=== PATIENT | male | born 1935 | race Caucasian/White ===

== ENCOUNTER 2023-10-03 09:29 | Emergency (ER) | payer OTHER, SELFPAY ==
[2023-10-03 09:37] VITALS: BP 155/72; PULSE 75; RESP 18; TEMP 36.6; O2SAT 96; BMI 31.9
--- NOTE | 2023-10-03 10:04 | ED.WOUNDLAC ---
HPI - Wound/Laceration General Chief Complaint: Wound/Laceration Stated Complaint: wound in groin area Time Seen by Provider: 10/03/23 09:51 Source: patient Mode of arrival: ambulatory Limitations: no limitations History of Present Illness ED Provider: EPIFANIO HYDE PA-C HPI narrative: 88 year old male with pmhx significant for T2DM presents to the ED today for evaluation of groin pruritis x1 year. States that he's been lathering the area with cream prescribed by his PCP with minimal relief. Admits to wearing depends and does not change them as often as he should. Additionally, states he only occasionally washes the area with soap and water. Denies fevers, chills, discharge from the penis, testicular swelling/ redness/ pain, dysuria, hematuria, rashes. Related Data Previous Rx's ?Medication ?Instructions ?Recorded miconazole nitrate 2 % topical 1 appl topical DAILY #85 grams 10/03/23 powder (Antifungal (miconazole)) Allergies Allergy/AdvReac Type Severity Reaction Status Date / Time morphine AdvReac Agitated Verified 10/03/23 09:38 Review of Systems Review of Systems: Constitutional: No fever, chills, fatigue, night sweats, weight changes ENT/Mouth: No ear pain, hearing loss, nasal congestion, sinus pain, rhinorrhea, sore throat Eyes: No eye pain, swelling, redness, vision changes, discharge Cardio: No chest pain, palpitations, SHAFFER, orthopnea, peripheral edema Pulm: No SOB, cough, sputum, wheezing, dyspnea, hemoptysis GI: No nausea, vomiting, hematemesis, abdominal pain, diarrhea, constipation, hematochezia, melena : No irregular bleeding, dysuria, frequency, urgency, hesitancy, hematuria, flank pain, urinary flow changes, urinary incontinence or retention MSK: No back pain, neck pain, joint pain, myalgias Skin: No lesions, +pruritic groin rash Neuro: No weakness, numbness, paresthesias, LOC, dizziness, headache Psych: No anxiety/panic, depression, SI/HI, AH/VH All other systems reviewed and are negative. [facility] Past Medical History Attestation statement: The following information was validated with the patient. Source: old records reviewed and nursing notes reviewed Social History Social History Advance Directives: Yes Advance Directives Information Provided: Yes Advance Directives on File: No Do you have a plan to hurt others: No Plan Physical Exam Vital Signs: Vital Signs: Last Vital Signs Temp 97.3 F 10/03/23 12:01 Pulse 68 10/03/23 12:01 Resp 15 10/03/23 12:01 BP 159/77 H 10/03/23 12:01 Pulse Ox 97 10/03/23 12:01 O2 Del Method Room Air 10/03/23 12:01 BMI result Body Mass Index 31.9 patient hypertensive, vitals otherwise wnl. Const: General: cooperative, comfortable and no acute distress Orientation/consciousness: patient oriented x3 Limitations: no limitations HEENT: Head: Yes normal to inspection, Yes No palpable skull fracture present, Yes normocephalic and Yes atraumatic Eyes: General: appearance normal, both eyes and all related structures Resp: Effort & Inspection: normal respiratory effort and able to speak in complete sentences Auscultation: clear to auscultation bilaterally Cardio: Rate: regular rate Rhythm: regular rhythm GI: Inspection: Yes normal to inspection Palpation (GI): Soft to palpation, nontender and no guarding : Other: sensitive exam performed with Christian RN in room to senior php web developer. penis wnl. no urethral discharge. testicles with normal lie. small peteciae noted to skin of both testicles with areas of excoriation. no erythema/ warmth/ swelling/ deformity/ no active bleeding or discharge. no tenderness. normal perineum. General: Yes no CVA tenderness Back/Spine/Pelvis: Back: no CVA tenderness Skin: Other: see above Neuro: General: patient oriented x3 and gait normal Course Course Course Narrative: 1135-- Patient's physical exam findings are consistent with yeast infection. there is no erythema/ warmth to suggest cellulitis. no swelling or overlying skin changes noted to perineum to suggest fourniers gangrene. no testicular swelling/ discharge. Discussed with patient. Will send miconazole powder to pharmacy for treatment. educated patient on keep the area clean and dry. advised to follow up with PCP and will provide referral to urology. Patient has remained stable throughout ED visit today. Discussed worrisome signs and symptoms and when to return to the ED. All questions answered at this time. Patient is agreeable with disposition and stable for discharge. Medical Decision Making Medical Decision Making [facility] Narrative: 88 year old male with pmhx significant for T2DM presents to the ED today for evaluation of groin pruritis x1 year. patient is hypertensive, vitals otherwise wnl. he is nontoxic appearing and in nad. on exam, penis wnl. no urethral discharge. testicles with normal lie. small peteciae noted to skin of both testicles with areas of excoriation. no erythema/ warmth/ swelling/ deformity/ no active bleeding or discharge. no tenderness. normal perineum. Differential diagnosis include fungal/ yeast infection. Unlikely cellulitis, fourniers gangrene. Plan for disposition. Differential Diagnosis Differential Diagnoses: The differential diagnosis associated with the presentation includes as above. Admission/Observation Not indicated. Tests considered The following testing was considered but not selected: I considered obtaining basic labs however no concern for systemic infection, not warranted. Prescription Management I considered prescription management with: Other (antifungal) Chronic Conditions Patient?s care impacted by: Diabetes Discharge Plan Discharge Clinical Impression: Fungal infection Patient Disposition: Home, Self-Care Instructions: Skin Yeast Infection (ED) Additional Instructions: You have a fungal infection. Miconzaole is an antifungal powder that has been sent to your pharmacy. You may apply this up to twice daily. Make sure you are changing your depends often. Wash your genital area well after removal and keep the area dry. You have also been provided with referral to urology. Call them to establish care. They will not call you. Return with new or worsening symptoms. In the case of an emergency call 911. Prescriptions: New miconazole nitrate [Antifungal (miconazole)] 2 % powder 1 appl topical DAILY Qty: 85 0RF Referrals: [facility] [place] [facility] [Provider Group] Interventions: ED Discharge Assessment Last Done: 10/03/23 12:01 Discharge Date/Time: 10/03/23 12:05 Print Language: [place]
[2023-10-03 11:35] VITALS: BP 159/77; PULSE 68; RESP 15; TEMP 36.3; O2SAT 97
[2023-10-03 12:01] VITALS: BP 159/77; PULSE 68; RESP 15; TEMP 36.3; O2SAT 97
== END 2023-10-03 12:05 | disposition home or self-care (01) ==
PROVIDERS: Emergency Provider Student in an Organized Health Care Education/Training Program
DX: B35.6 Tinea cruris (principal); L29.9 Pruritus, unspecified
CPT/HCPCS: 99283

== ENCOUNTER 2023-11-27 15:57 | Emergency (ER) | payer MEDICARE, SELFPAY ==
[2023-11-27 16:39] VITALS: BP 143/92; PULSE 84; RESP 16; TEMP 36.4; O2SAT 94; BMI 36.4
--- NOTE | 2023-11-27 16:42 | ED_ITS ---
HPI - General Adult General Chief complaint: Urogenital-Male Stated complaint: unable to urinate Time Seen by Provider: 11/27/23 22:00 Source: patient Mode of arrival: ambulatory Limitations: no limitations History of Present Illness ED Provider: carol PALENCIA narrative: Patient's history of diabetes hypertension peripheral vascular disease diverticulitis status post colostomy comes here for 5 days of dysuria and frequency no fever no chills no nausea no vomiting no back pain patient never been on any prostate medication history of UTI last year with similar symptoms. Bladder scan postvoid was 0 Related Data Previous Rx's ?Medication ?Instructions ?Recorded miconazole nitrate 2 % topical 1 appl topical DAILY #85 grams 10/03/23 powder (Antifungal (miconazole)) cefuroxime axetil 250 mg tablet 250 mg PO BID 7 days #14 tabs 11/27/23 Allergies Allergy/AdvReac Type Severity Reaction Status Date / Time morphine AdvReac Agitated Verified 11/27/23 16:40 Review of Systems 2 Review of Systems: Yes all other systems are reviewed and are negative [facility] Past Medical History Medical History (Updated 11/28/23 @ 00:01 by Destiny Pryor) Colostomy in place Diverticulitis Peripheral vascular disease Hypertension Diabetes mellitus Social History Social History Advance Directives: No Advance Directives Information Provided: No Do you have a plan to hurt others: No Plan Physical Exam ED Vital Signs: Vital Signs - 24 hr 11/27/23 16:39 11/27/23 22:35 11/27/23 22:43 Temperature 97.6 F 97.8 F 97.8 F Pulse Rate 84 74 74 Respiratory Rate 16 16 16 Blood Pressure 143/92 H 111/56 L 111/56 L Pulse Oximetry 94 96 96 Oxygen Delivery Method Room Air Room Air Room Air BMI result Body Mass Index 36.4 Appearance: Alert. Oriented X3. No acute distress. Eyes: No pallor or icterus ENT: Pharynx normal. Oral Mucosa moist Neck: Normal inspection. Neck supple. CVS: Normal heart rate and rhythm. Pulses normal. Respiratory: No respiratory distress. Equal air entry bilateral, no wheezing/rales/rhonchi Abdomen: Soft and nontender. Bowel sounds are present, no mass palpable, no CVA tenderness Skin: Skin warm and dry. Normal skin color. Normal skin turgor. Extremities: No lower extremity edema. No calf tenderness Neuro: Oriented X 3. No motor deficit. No sensory deficit.No cerebellar signs , cranial nerves II-XII intact Course Course Course Narrative: This is an RME: Additional HPI, ROS, PE not included below will be deferred to primary provider. RME assessment and note performed by: Mary Lou Santillan PA-C This is a 88 year old male, with a history of type 2 diabetes, who presents to the ER with complaints of urinary retention with dysuria. Unable to fully empty bladder. No abdominal discomfort. He is well-appearing. Plan: Labs, UA, further ER evaluation needed. Medications Administered Discontinued Medications Generic Name Dose Route Start Last Admin Trade Name Freq PRN Reason Stop Dose Admin Cefuroxime Axetil 500 mg 11/27/23 22:17 11/27/23 22:34 Cefuroxime Axetil 500 Mg Tablet PO 11/27/23 22:18 500 mg ONCE ONE Administration Medical Decision Making Medical Decision Making [facility] Narrative: Patient with UTI symptoms with history of diabetes and hypertension no history of acute urinary retention no history of any use of medication for enlarged prostate been followed by urologist. Will start patient on cefuroxime for UTI Differential Diagnosis Differential Diagnoses: The differential diagnosis associated with the presentation includes Lab Data MDM Lab Attestation statement: I reviewed the patient's lab results. 11/27/23 17:24 11/27/23 17:24 Labs: Lab Results 11/27/23 Range/Units 17:24 WBC 8.6 (4.8-10.8) X10*3/uL RBC 3.96 L (4.60-5.80) X10*6/uL Hgb 12.7 L (14.0-18.0) g/dl Hct 36.9 L (42.0-52.0) % MCV 93.2 (80.0-98.0) fL MCH 32.1 (27.0-33.0) pg MCHC 34.4 (31.0-36.0) g/dl RDW 12.6 (11.0-16.0) % Plt Count 132 L (160-400) X10*3/uL MPV 10.4 (9.4-12.4) fL Immature Gran % (Auto) 0.7 H (0.0-0.4) % Neut % (Auto) 71.0 (45-73) % Lymph % (Auto) 14.7 L (20-40) % [place] % (Auto) 11.4 H (2-11) % Eos % (Auto) 1.7 (0-4) % Baso % (Auto) 0.5 (0-2) % Lymph # (Auto) 1.3 (1.2-4.9) X10*3/uL [place] # (Auto) 1.0 (0.1-1.2) X10*3/uL Eos # (Auto) 0.2 (0.0-0.4) X10*3/uL Baso # (Auto) 0.0 (0.0-0.2) X10*3/uL Abs Immat Gran (auto) 0.06 H (0.00-0.03) X10*3/uL Absolute Neuts (auto) 6.1 (2.0-8.3) x10*3/uL Absolute Nucleated RBC 0.000 (0.0-0.012) X10*3/uL Nucleated RBC % (auto) 0.0 (0.0-0.2) /100WBC Sodium 136 (135-145) mmol/L Potassium 4.4 (3.3-5.1) mmol/L Chloride 104 (96-108) mmol/L Carbon Dioxide 23 (22-29) mmol/L Anion Gap 13 (12-20) BUN 33 H (9-16) mg/dL Creatinine 1.34 (0.5-1.4) mg/dL Estim Creat Clear Calc 31.5 Estimated GFR 51 Random Glucose 265 H (60-115) mg/dL Calcium 9.6 (8.4-10.2) mg/dL Total Bilirubin 0.5 (0.0-1.0) mg/dL Direct Bilirubin 0.2 (0.0-0.5) mg/dL AST 16 (5-37) U/L ALT 16 (0-40) U/L Alkaline Phosphatase 107 (39-117) U/L Total Protein 7.1 (6.5-8.0) g/dL Albumin 3.8 (3.5-5.0) g/dL Urine Color Yellow Urine Appearance Cloudy Urine pH 5.5 (5.0-9.0) Ur Specific Asher 1.010 (1.005-1.025) Urine Protein 30 (1+) H (Neg-Trace) mg/dL Urine Glucose (UA) 500 H (Negative) mg/dL Urine Ketones Negative (Negative) mg/dL Urine Blood Moderate (2+) H (Negative) Urine Nitrite Negative (Negative) Ur Leukocyte Esterase Large (3+) H (Negative) Urine RBC 0-2 (0-2) /HPF Urine WBC >50 H (0-5) /HPF Ur Squamous Epith Cells 0-2 (0-2) /HPF Urine Bacteria 3+ (None Seen) Hyaline Casts 0-2 (0-2) /LPF Discharge Plan Discharge Clinical Impression: Urinary tract infection Patient Disposition: Home, Self-Care Instructions: Urinary Tract Infection in Men (DC) Additional Instructions: Drink plenty of fluids Take antibiotic as prescribed Follow with your PCP if not better Prescriptions: New cefuroxime axetil 250 mg tablet 250 mg PO BID 7 Days Qty: 14 0RF No Action miconazole nitrate [Antifungal (miconazole)] 2 % powder 1 appl topical DAILY Qty: 85 0RF Interventions: ED Discharge Assessment Last Done: 11/27/23 22:43 Discharge Date/Time: 11/27/23 22:44 Print Language: Mohawk
[2023-11-27 17:30] LABS: MANUAL DIFF FLAG NO
[2023-11-27 17:33] LABS: Appearance Urine Cloudy; Basophils Percent Auto 0.5 % (0-2); Color Urine Yellow; Eosinophils Absolute Auto 0.2 X10*3/uL (0.0-0.4); Eosinophils Percent Auto 1.7 % (0-4); Glucose Urine UA 500 mg/dL (Negative); Hematocrit 36.9 % (42.0-52.0); Hemoglobin 12.7 g/dl (14.0-18.0); Imm Gran Abs Auto 0.06 X10*3/uL (0.00-0.03); Imm Gran Pct Auto 0.7 % (0.0-0.4); Leukocyte Esterase Urine Large (3+) (Negative); Lymphocytes Absolute Auto 1.3 X10*3/uL (1.2-4.9); Lymphocytes Percent Auto 14.7 % (20-40); Mean Corpuscular HGB Conc 34.4 g/dl (31.0-36.0); Mean Corpuscular Hemoglobin 32.1 pg (27.0-33.0); Mean Corpuscular Volume 93.2 fL (80.0-98.0); Mean Platelet Volume 10.4 fL (9.4-12.4); Monocytes Percent Auto 11.4 % (2-11); Neutrophils Absolute Auto 6.1 x10*3/uL (2.0-8.3); Nitrite Urine Negative (Negative); PH 5.5 (5.0-9.0); Platelet Count 132 X10*3/uL (160-400); Red Blood Count 3.96 X10*6/uL (4.60-5.80); Red Cell Distribution Width 12.6 % (11.0-16.0); UMIC TRIGGER UACC YES; Urine Blood Moderate (2+) (Negative); Urine Ketones Negative (Negative); Urine Protein 30 (1+) mg/dL (Neg-Trace); White Blood Count 8.6 X10*3/uL (4.8-10.8)
[2023-11-27 17:46] LABS: Bacteria Urine 3+ (None Seen); Hyaline Casts Urine 0-2 /LPF (0-2); RBC Urine 0-2 /HPF (0-2); Squamous Epithelial Cell Urine 0-2 /HPF (0-2); UACC Culture Trigger YES; WBC Urine >50 /HPF (0-5)
[2023-11-27 17:47] LABS: Alanine Aminotransferase 16 U/L (0-40); Albumin Level 3.8 g/dL (3.5-5.0); Alkaline Phosphatase 107 U/L (39-117); Anion Gap 13 (12-20); Aspartate Amino Transferase 16 U/L (5-37); Bilirubin Direct 0.2 mg/dL (0.0-0.5); Bilirubin Total 0.5 mg/dL (0.0-1.0); Blood Urea Nitrogen 33 mg/dL (9-16); Calcium 9.6 mg/dL (8.4-10.2); Carbon Dioxide 23 mmol/L (22-29); Chloride 104 mmol/L (96-108); Creatinine Clr Calc Pharmacy 31.5; Estimated Glomerular Filt Rate 51; Glucose Random 265 mg/dL (60-115); Potassium 4.4 mmol/L (3.3-5.1); Sodium 136 mmol/L (135-145); Total Protein 7.1 g/dL (6.5-8.0)
[2023-11-27] MEDS: cefuroxime axetiL 500 MG TABLET PO (22:34)
[2023-11-27 22:35] VITALS: BP 111/56; PULSE 74; RESP 16; TEMP 36.6; O2SAT 96
[2023-11-27 22:43] VITALS: BP 111/56; PULSE 74; RESP 16; TEMP 36.6; O2SAT 96
== END 2023-11-27 22:44 | disposition home or self-care (01) ==
PROVIDERS: Physician Assistant Medical; Emergency Provider Internal Medicine
DX: N39.0 Urinary tract infection, site not specified (principal); R33.9 Retention of urine, unspecified; R30.0 Dysuria; R35.0 Frequency of micturition; Z79.899 Other long term (current) drug therapy
CPT/HCPCS: 36415; 51798; 80048; 80076; 81001; 85025; 87086; 87088; 87186; 99283; 99284